=== PATIENT | male | born 1965 | race Caucasian/White ===

== ENCOUNTER 2017-01-28 09:53 | Emergency (ER) | payer OTHER, SELFPAY ==
[~2017-01-28] VITALS: Ht 167.6 cm; Wt 77.6 kg
[2017-01-28 09:54] VITALS: BP_DIAS 78
[2017-01-28] MEDS ORDERED: KETOROLAC 60 MG/2 ML VIAL (J1885) IM ONE (10:30)
[2017-01-28] MEDS ORDERED: NAPR500T PO (10:41)
[2017-01-28] MEDS ORDERED: VALI5TAB PO (10:41)
[2017-01-28 10:47] VITALS: BP_SYST 142
== END 2017-01-28 10:50 | disposition home or self-care (01) ==
LOC: M ED 09:53
DX: S39.012A Strain of muscle, fascia and tendon of lower back, initial encounter (principal); X50.9XXA Other and unspecified overexertion or strenuous movements or postures, initial encounter; Y92.019 Unspecified place in single-family (private) house as the place of occurrence of the external cause; Y93.89 Activity, other specified; Y99.8 Other external cause status
CPT/HCPCS: 96372; 99282; J1885

== ENCOUNTER 2017-07-03 09:41 | Emergency (ER) | payer MEDICAID, SELFPAY ==
[2017-07-03] MEDS: LIDOCAINE 2% MDV 20 ML VIAL SC (10:15)
[2017-07-03] MEDS: BUPIVACAINE HCL 0.5% 10 ML VIAL SC (10:15)
== END 2017-07-03 10:42 | disposition home or self-care (01) ==
LOC: M ED 09:41
DX: K04.7 Periapical abscess without sinus (principal); F17.210 Nicotine dependence, cigarettes, uncomplicated; Z96.9 Presence of functional implant, unspecified
CPT/HCPCS: 64400

== ENCOUNTER → 2017-08-04 | Outpatient (CLI) | payer OTHER, MEDICAID | LOC: M WUC 17:01 | DX: M51.36 Other intervertebral disc degeneration, lumbar region (principal); M51.37 Other intervertebral disc degeneration, lumbosacral region; M43.16 Spondylolisthesis, lumbar region; M43.17 Spondylolisthesis, lumbosacral region | CPT/HCPCS: 72100 ==

== ENCOUNTER 2017-08-16 08:47 | Emergency (ER) | payer OTHER | END 2017-08-16 10:49 | disposition home or self-care (01) | LOC: M ED 08:47 | DX: M19.012 Primary osteoarthritis, left shoulder (principal); M75.32 Calcific tendinitis of left shoulder; F17.210 Nicotine dependence, cigarettes, uncomplicated | CPT/HCPCS: 73030 ==

== ENCOUNTER → 2017-08-16 | Outpatient (REF) | payer OTHER ==
[2017-08-16 14:00] LABS: BASO # 0.1 10^3/uL (0.0-0.2); BASO % 0.7 % (0.0-1.0); EOS # 0.2 10^3/uL (0.0-0.50); EOS % 2.6 % (0.0-3.0); HEMATOCRIT 45.8 % (42.0-52.0); HEMOGLOBIN 15.4 g/dl (14.0-18.0); IMMATURE GRANULOCYTE % 0.2 % (0-3.0); LYMPH # 2.8 10^3/uL (1.5-4.5); LYMPH % 30.7 % (24.0-44.0); MEAN CORPUSCULAR HEMOGLOBIN 30.6 pg (27.0-33.0); MEAN CORPUSCULAR HGB CONC 33.6 g/dl (32.0-36.5); MEAN CORPUSCULAR VOLUME 90.9 fl (80.0-96.0); MONO # 0.6 10^3/uL (0.0-0.8); MONO % 6.9 % (0.0-5.0); NEUTROPHILS # 5.4 10^3/uL (1.8-7.7); NEUTROPHILS % 58.9 % (36.0-66.0); PLATELET COUNT, AUTOMATED 189 10^3/uL (150-450); RED BLOOD COUNT 5.04 10^6/uL (4.30-6.10); RED CELL DISTRIBUTION WIDTH 13.8 % (11.5-14.5); WHITE BLOOD COUNT 9.1 10^3/uL (4.0-10.0)
[2017-08-16 14:23] LABS: ALBUMIN 4.2 GM/DL (3.2-5.2); ALBUMIN/GLOBULIN RATIO 1.31 (1.00-1.93); ALKALINE PHOSPHATASE 82 U/L (45-117); ALT/SGPT 15 U/L (12-78); ANION GAP 6 MEQ/L (8-16); AST/SGOT 12 U/L (7-37); BILIRUBIN,TOTAL 0.2 MG/DL (0.2-1.0); BLOOD UREA NITROGEN 19 MG/DL (7-18); CARBON DIOXIDE LEVEL 26 MEQ/L (21-32); CHLORIDE LEVEL 111 MEQ/L (98-107); CHOLESTEROL LEVEL 203 MG/DL (<200); CHOLESTEROL RISK RATIO 7.518 (<5); CREATININE FOR GFR 1.06 MG/DL (0.70-1.30); GLOMERULAR FILTRATION RATE > 60.0 (>56); GLUCOSE, FASTING 93 MG/DL (70-100); HDL CHOLESTEROL 27 MG/DL (>40); LDL CHOLESTEROL 111.4 MG/DL (<100); NON-HDL-C 176 MG/DL; POTASSIUM SERUM 4.5 MEQ/L (3.5-5.1); SODIUM LEVEL 143 MEQ/L (136-145); TOTAL PROTEIN 7.4 GM/DL (6.4-8.2); TRIGLYCERIDES LEVEL 323 MG/DL (<150)
[2017-08-16 14:49] LABS: HEPATITIS B SURFACE ANTIGEN NEGATIVE (NEGATIVE)
[2017-08-16 15:50] LABS: HEPATITIS C VIRUS ABY INDEX > 11.0 INDEX (<0.8)
[2017-08-20 00:06] LABS: HCV RNA NAA QUALITATIVE Positive (Negative)
== END ==
LOC: M LAB REF 13:23
DX: Z00.01 Encounter for general adult medical examination with abnormal findings (principal); Z20.2 Contact with and (suspected) exposure to infections with a predominantly sexual mode of transmission

== ENCOUNTER → 2017-08-26 | Outpatient (REF) | payer OTHER ==
[2017-09-01 00:06] LABS: ALPHA 2-MACROGLOBULIN 351 mg/dL (110-276); ALT 10 IU/L (0-55); APOLIPOPROTEIN A-1 126 mg/dL (101-178); FIBROSIS SCORE 0.44 (0.00-0.21); FIBROSIS STAGE F1-F2 (.); GGT 27 IU/L (0-65); HAPTOGLOBIN 122 mg/dL (34-200); HEPATITIS C QUANTITATION <15 IU/mL (.); NECROINFLAM SCORE 0.03 (0.00-0.17); NECROINFLAMM GRADE A0-No activity (.); TOTAL BILIRUBIN 0.3 mg/dL (0.0-1.2)
== END ==
LOC: M LAB REF 17:52
DX: B18.2 Chronic viral hepatitis C (principal)

== ENCOUNTER → 2017-08-27 | Outpatient (CLI) | payer OTHER | LOC: M PAIN 14:45 | DX: M79.1 Myalgia (principal); M46.96 Unspecified inflammatory spondylopathy, lumbar region; M54.2 Cervicalgia; M54.6 Pain in thoracic spine; F17.210 Nicotine dependence, cigarettes, uncomplicated; Z79.899 Other long term (current) drug therapy | CPT/HCPCS: G0463 ==

== ENCOUNTER → 2017-09-18 | Outpatient (CLI) | payer OTHER | LOC: M RAD 12:39 | DX: M51.34 Other intervertebral disc degeneration, thoracic region (principal); M50.20 Other cervical disc displacement, unspecified cervical region | CPT/HCPCS: 72141 ==

== ENCOUNTER 2017-09-27 12:37 | Outpatient (RCR) | payer OTHER | END 2017-10-11 | LOC: M PT 12:37 | DX: Z51.89 Encounter for other specified aftercare (principal); M79.1 Myalgia; M46.96 Unspecified inflammatory spondylopathy, lumbar region; M54.2 Cervicalgia; M54.6 Pain in thoracic spine | CPT/HCPCS: 97162 ==

== ENCOUNTER → 2017-10-11 | Outpatient (REF) | payer OTHER ==
[2017-10-11 16:01] LABS: BASO % 0.4 % (0.0-1.0); EOS # 0.2 10^3/uL (0.0-0.50); EOS % 2.4 % (0.0-3.0); HEMATOCRIT 45.4 % (42.0-52.0); HEMOGLOBIN 15.2 g/dl (13.5-17.5); IMMATURE GRANULOCYTE % 0.4 % (0-3.0); LYMPH # 2.5 10^3/uL (1.5-4.5); LYMPH % 29.7 % (24.0-44.0); MEAN CORPUSCULAR HEMOGLOBIN 31.3 pg (27.0-33.0); MEAN CORPUSCULAR HGB CONC 33.5 g/dl (32.0-36.5); MEAN CORPUSCULAR VOLUME 93.4 fl (80.0-96.0); MONO # 0.6 10^3/uL (0.0-0.8); MONO % 7.2 % (0.0-5.0); NEUTROPHILS % 59.9 % (36.0-66.0); PLATELET COUNT, AUTOMATED 190 10^3/uL (150-450); RED BLOOD COUNT 4.86 10^6/uL (4.30-6.10); RED CELL DISTRIBUTION WIDTH 13.7 % (11.5-14.5); WHITE BLOOD COUNT 8.3 10^3/uL (4.0-10.0)
[2017-10-11 16:06] LABS: HEPATITIS B SURFACE ANTIBODY NEGATIVE (POSITIVE)
[2017-10-11 16:07] LABS: ALBUMIN 4.1 GM/DL (3.2-5.2); ALBUMIN/GLOBULIN RATIO 1.21 (1.00-1.93); ALKALINE PHOSPHATASE 72 U/L (45-117); ALT/SGPT 26 U/L (12-78); ANION GAP 7 MEQ/L (8-16); AST/SGOT 21 U/L (7-37); BILIRUBIN,TOTAL 0.3 MG/DL (0.2-1.0); BLOOD UREA NITROGEN 13 MG/DL (7-18); CALCIUM LEVEL 9.2 MG/DL (8.5-10.1); CARBON DIOXIDE LEVEL 27 MEQ/L (21-32); CHLORIDE LEVEL 110 MEQ/L (98-107); CREATININE FOR GFR 1.09 MG/DL (0.70-1.30); GLOMERULAR FILTRATION RATE > 60.0 (>56); GLUCOSE, FASTING 98 MG/DL (70-100); POTASSIUM SERUM 4.3 MEQ/L (3.5-5.1); SODIUM LEVEL 144 MEQ/L (136-145); TOTAL PROTEIN 7.5 GM/DL (6.4-8.2)
[2017-10-11 16:46] LABS: HIV 1&2 SCREEN CENTAUR NEGATIVE (NEGATIVE)
== END ==
LOC: M SFHCPLAZ 12:59
DX: B19.20 Unspecified viral hepatitis C without hepatic coma (principal)

== ENCOUNTER → 2017-10-14 | Outpatient (CLI) | payer OTHER | LOC: M PAIN 14:30 | DX: M51.36 Other intervertebral disc degeneration, lumbar region (principal); G89.29 Other chronic pain; M54.2 Cervicalgia; F32.9 Major depressive disorder, single episode, unspecified; F17.210 Nicotine dependence, cigarettes, uncomplicated; Z79.899 Other long term (current) drug therapy | CPT/HCPCS: G0463 ==

== ENCOUNTER → 2017-10-25 | Outpatient (CLI) | payer MEDICAID | LOC: M OUTALCOH 07:48 | DX: Z13.9 Encounter for screening, unspecified (principal); F11.20 Opioid dependence, uncomplicated; F10.20 Alcohol dependence, uncomplicated; F14.20 Cocaine dependence, uncomplicated ==

== ENCOUNTER → 2017-10-26 | Outpatient (REF) | payer MEDICAID | LOC: M LAB REF 19:08 | DX: F11.21 Opioid dependence, in remission (principal) ==

== ENCOUNTER → 2017-11-02 | Outpatient (REF) | payer MEDICAID, OTHER ==
[2017-11-15 10:26] LABS: AMPHETAMINE SCREEN, URINE Negative ng/mL (Cutoff=1000); BARBITURATES SCREEN, URINE Negative ng/mL (Cutoff=200); BENZODIAZEPINES, URINE SCREEN Negative ng/mL (Cutoff=200); CANNABINOID SCREEN, URINE Negative ng/mL (Cutoff=20); COCAINE SCREEN, URINE Negative ng/mL (Cutoff=300); CREATININE, URINE 93.4 mg/dL (20.0-300.0); FENTANYL URINE SCREEN Negative pg/mL (Cutoff=2000); METHADONE, URINE SCREEN Negative ng/mL (Cutoff=300); NALOXONE RESULT Positive (.); OPIATE SCREEN, URINE Negative ng/mL (Cutoff=300); OXYCODONE, SCREEN, URINE Negative ng/mL (Cutoff=100); PCP SCREEN, URINE Negative ng/mL (Cutoff=25); SPECIFIC GRAVITY, URINE 1.013 (.); URINE BUPRENORPHINE Positive (.); URINE BUPRENORPHINE Positive (Cutoff=10); URINE BUPRENORPHINE See Final Results ng/mL (Cutoff=10); URINE BUPRENORPHINE CONFIRM 172 ng/mL (Cutoff=10); URINE NORBUPRENORPHINE Positive (.); URINE NORBUPRENORPHINE CONFIRM 336 ng/mL (Cutoff=10)
== END ==
LOC: M LAB REF 16:28
DX: F11.21 Opioid dependence, in remission (principal)

== ENCOUNTER → 2017-11-09 | Outpatient (REF) | payer MEDICAID, OTHER ==
[2017-11-23 14:16] LABS: AMPHETAMINE SCREEN, URINE Negative ng/mL (Cutoff=1000); BARBITURATES SCREEN, URINE Negative ng/mL (Cutoff=200); BENZODIAZEPINES, URINE SCREEN Negative ng/mL (Cutoff=200); CANNABINOID SCREEN, URINE Negative ng/mL (Cutoff=20); COCAINE SCREEN, URINE Negative ng/mL (Cutoff=300); CREATININE, URINE 27.4 mg/dL (20.0-300.0); FENTANYL URINE SCREEN Negative pg/mL (Cutoff=2000); METHADONE, URINE SCREEN Negative ng/mL (Cutoff=300); NALOXONE RESULT Positive (.); OPIATE SCREEN, URINE Negative ng/mL (Cutoff=300); OXYCODONE, SCREEN, URINE Negative ng/mL (Cutoff=100); PCP SCREEN, URINE Negative ng/mL (Cutoff=25); SPECIFIC GRAVITY, URINE 1.006 (.); URINE BUPRENORPHINE Positive (.); URINE BUPRENORPHINE Positive (Cutoff=10); URINE BUPRENORPHINE See Final Results ng/mL (Cutoff=10); URINE BUPRENORPHINE CONFIRM 30 ng/mL (Cutoff=10); URINE NORBUPRENORPHINE Positive (.); URINE NORBUPRENORPHINE CONFIRM 62 ng/mL (Cutoff=10); pH, URINE 5.6 (4.5-8.9)
== END ==
LOC: M LAB REF 18:49
DX: F11.21 Opioid dependence, in remission (principal)
CPT/HCPCS: 80362

== ENCOUNTER 2017-11-10 10:34 | Outpatient (RCR) | payer MEDICAID | END 2017-11-11 | LOC: M OUTALCOH 10:34 | DX: F11.20 Opioid dependence, uncomplicated (principal); F10.20 Alcohol dependence, uncomplicated; F14.20 Cocaine dependence, uncomplicated; F17.200 Nicotine dependence, unspecified, uncomplicated ==

== ENCOUNTER 2017-11-15 14:06 | Outpatient (RCR) | payer MEDICAID | END 2017-12-11 | LOC: M OUTALCOH 14:06 | DX: F11.20 Opioid dependence, uncomplicated (principal); F10.20 Alcohol dependence, uncomplicated; F14.20 Cocaine dependence, uncomplicated; F17.200 Nicotine dependence, unspecified, uncomplicated ==

== ENCOUNTER 2017-12-13 10:32 | Outpatient (RCR) | payer MEDICAID | END 2018-01-11 | LOC: M OUTALCOH 10:32 | DX: F11.20 Opioid dependence, uncomplicated (principal); F10.20 Alcohol dependence, uncomplicated; F14.20 Cocaine dependence, uncomplicated; F17.200 Nicotine dependence, unspecified, uncomplicated ==

== ENCOUNTER → 2017-12-16 | Outpatient (REF) | payer OTHER ==
[2017-12-16 12:13] LABS: ALBUMIN 3.9 GM/DL (3.2-5.2); ALBUMIN/GLOBULIN RATIO 1.11 (1.00-1.93); ALKALINE PHOSPHATASE 82 U/L (45-117); ALT/SGPT 19 U/L (12-78); AST/SGOT 20 U/L (7-37); BILIRUBIN,DIRECT < 0.1 MG/DL (0.0-0.2); BILIRUBIN,TOTAL 0.4 MG/DL (0.2-1.0); TOTAL PROTEIN 7.4 GM/DL (6.4-8.2)
[2017-12-20 11:01] LABS: HEPATITIS C QUANTITATION HCV Not Detected IU/mL (.)
== END ==
LOC: M SFHCPLAZ 09:42
DX: B18.2 Chronic viral hepatitis C (principal)
CPT/HCPCS: 80076

== ENCOUNTER → 2018-01-05 | Outpatient (CLI) | payer OTHER ==
[2018-01-05 13:16] LABS: ALBUMIN 3.8 GM/DL (3.2-5.2); ALBUMIN/GLOBULIN RATIO 1.12 (1.00-1.93); ALKALINE PHOSPHATASE 79 U/L (45-117); ALT/SGPT 22 U/L (12-78); AST/SGOT 18 U/L (7-37); BILIRUBIN,DIRECT < 0.1 MG/DL (0.0-0.2); BILIRUBIN,TOTAL 0.3 MG/DL (0.2-1.0); TOTAL PROTEIN 7.2 GM/DL (6.4-8.2)
== END ==
LOC: M LAB 12:08
DX: Z01.812 Encounter for preprocedural laboratory examination (principal); M65.351 Trigger finger, right little finger
CPT/HCPCS: 80076

== ENCOUNTER → 2018-02-01 | Outpatient (REF) | LOC: M SMT 10:54 | DX: Z02.9 Encounter for administrative examinations, unspecified (principal) ==

== ENCOUNTER 2018-02-16 16:00 | Outpatient (RCR) | payer MEDICAID | END 2018-03-13 | LOC: M OUTALCOH 02-21 14:00 | DX: F11.20 Opioid dependence, uncomplicated (principal); F10.20 Alcohol dependence, uncomplicated; F14.20 Cocaine dependence, uncomplicated; F17.200 Nicotine dependence, unspecified, uncomplicated ==

== ENCOUNTER 2018-03-14 13:51 | Outpatient (RCR) | payer MEDICAID | END 2018-04-13 | LOC: M OUTALCOH 03-21 14:00 | DX: F11.20 Opioid dependence, uncomplicated (principal); F10.20 Alcohol dependence, uncomplicated; F14.20 Cocaine dependence, uncomplicated; F17.200 Nicotine dependence, unspecified, uncomplicated ==

== ENCOUNTER → 2018-03-17 | Outpatient (REF) | payer MEDICAID ==
[2018-03-17 12:59] LABS: BASO # 0.1 10^3/uL (0.0-0.2); BASO % 0.7 % (0.0-1.0); EOS # 0.4 10^3/uL (0.0-0.50); EOS % 4.4 % (0.0-3.0); HEMATOCRIT 49.3 % (42.0-52.0); HEMOGLOBIN 16.6 g/dl (13.5-17.5); IMMATURE GRANULOCYTE % 0.6 % (0-3.0); LYMPH # 3.5 10^3/uL (1.5-4.5); LYMPH % 40.1 % (24.0-44.0); MEAN CORPUSCULAR HGB CONC 33.7 g/dl (32.0-36.5); MEAN CORPUSCULAR VOLUME 92.1 fl (80.0-96.0); MONO # 0.6 10^3/uL (0.0-0.8); MONO % 6.7 % (0.0-5.0); NEUTROPHILS # 4.2 10^3/uL (1.8-7.7); NEUTROPHILS % 47.5 % (36.0-66.0); PLATELET COUNT, AUTOMATED 222 10^3/uL (150-450); RED BLOOD COUNT 5.35 10^6/uL (4.30-6.10); RED CELL DISTRIBUTION WIDTH 13.2 % (11.5-14.5); WHITE BLOOD COUNT 8.8 10^3/uL (4.0-10.0)
[2018-03-17 14:17] LABS: ALBUMIN/GLOBULIN RATIO 1.14 (1.00-1.93); ALKALINE PHOSPHATASE 64 U/L (45-117); ALT/SGPT 23 U/L (12-78); ANION GAP 6 MEQ/L (8-16); AST/SGOT 24 U/L (7-37); BILIRUBIN,TOTAL 0.3 MG/DL (0.2-1.0); BLOOD UREA NITROGEN 14 MG/DL (7-18); CALCIUM LEVEL 9.5 MG/DL (8.5-10.1); CARBON DIOXIDE LEVEL 29 MEQ/L (21-32); CHLORIDE LEVEL 106 MEQ/L (98-107); CHOLESTEROL LEVEL 213 MG/DL (<200); CREATININE FOR GFR 1.15 MG/DL (0.70-1.30); GLOMERULAR FILTRATION RATE > 60.0 (>56); GLUCOSE, FASTING 103 MG/DL (70-100); HDL CHOLESTEROL 20 MG/DL (>40); NON-HDL-C 193 MG/DL; SODIUM LEVEL 141 MEQ/L (136-145); TOTAL PROTEIN 7.5 GM/DL (6.4-8.2); TRIGLYCERIDES LEVEL 439 MG/DL (<150)
== END ==
LOC: M LAB REF 12:42
DX: R41.3 Other amnesia (principal)

== ENCOUNTER → 2018-03-31 | Outpatient (CLI) | payer OTHER | LOC: M RAD 11:08 | DX: R90.82 White matter disease, unspecified (principal); R41.3 Other amnesia | CPT/HCPCS: 70551 ==

== ENCOUNTER 2018-04-18 14:25 | Outpatient (RCR) | payer MEDICAID | END 2018-05-13 | LOC: M OUTALCOH 04-25 16:00 | DX: F11.20 Opioid dependence, uncomplicated (principal); F10.20 Alcohol dependence, uncomplicated; F14.20 Cocaine dependence, uncomplicated; F17.200 Nicotine dependence, unspecified, uncomplicated ==

== ENCOUNTER → 2018-04-21 | Outpatient (REF) | payer MEDICAID ==
[2018-04-21 14:01] LABS: RHEUMATOID FACTOR QUANT < 10.0 IU/ML (<15.0); TOTAL PROTEIN 7.2 GM/DL (6.4-8.2)
[2018-04-21 15:36] LABS: ERYTHROCYTE SEDIMENTATION RATE 25 mm/hr (0-20)
[2018-04-21 17:12] LABS: ESTIMATED AVERAGE GLUCOSE 114 MG/DL (60-110); HEMOGLOBIN A1c 5.6 %
[2018-04-26 09:52] LABS: ALBUMIN 4.17 GM/DL (3.29-5.55); ALBUMIN % 57.9 % (55.8-66.1); ALPHA-1-GLOBULIN % 4.3 % (2.9-4.9); ALPHA-1-GLOBULINS 0.31 GM/DL (0.17-0.41); ALPHA-2-GLOBULINS 0.85 GM/DL (0.42-0.99); ALPHA-2-GLOBULINS % 11.8 % (7.1-11.8); BETA-1-GLOBULINS 0.38 GM/DL (0.28-0.60); BETA-1-GLOBULINS % 5.3 % (4.7-7.2); BETA-2-GLOBULINS 0.41 GM/DL (0.19-0.55); BETA-2-GLOBULINS % 5.7 % (3.2-6.5); GAMMA GLOBULINS 1.08 GM/DL (0.65-1.58)
[2018-04-27 00:06] LABS: ANTINUCLEAR ANTIBODIES DIRECT Negative (Negative); VITAMIN B1 LEVEL WHOLE BLOOD 55.3 nmol/L (66.5-200.0); VITAMIN B6,PYRIDOXAL PHOSPHATE 16.9 ug/L (5.3-46.7); VITAMIN E(ALPHA TOCOPHEROL) 11.9 mg/L (7.0-25.1)
== END ==
LOC: M LABNEURO 09:41
DX: E11.40 Type 2 diabetes mellitus with diabetic neuropathy, unspecified (principal)
CPT/HCPCS: 84165

== ENCOUNTER → 2018-04-25 | Outpatient (REF) | payer OTHER ==
[2018-04-25 11:58] LABS: BASO # 0.1 10^3/uL (0.0-0.2); BASO % 0.8 % (0.0-1.0); EOS # 0.5 10^3/uL (0.0-0.50); EOS % 5.1 % (0.0-3.0); HEMATOCRIT 43.9 % (42.0-52.0); HEMOGLOBIN 14.8 g/dl (13.5-17.5); IMMATURE GRANULOCYTE % 0.8 % (0-3.0); LYMPH # 3.3 10^3/uL (1.5-4.5); LYMPH % 33.8 % (24.0-44.0); MEAN CORPUSCULAR HGB CONC 33.7 g/dl (32.0-36.5); MONO # 0.8 10^3/uL (0.0-0.8); NEUTROPHILS # 5.1 10^3/uL (1.8-7.7); NEUTROPHILS % 51.5 % (36.0-66.0); PLATELET COUNT, AUTOMATED 219 10^3/uL (150-450); RED BLOOD COUNT 4.77 10^6/uL (4.30-6.10); RED CELL DISTRIBUTION WIDTH 13.2 % (11.5-14.5); WHITE BLOOD COUNT 9.9 10^3/uL (4.0-10.0)
[2018-04-25 12:15] LABS: ALBUMIN 3.6 GM/DL (3.2-5.2); ALBUMIN/GLOBULIN RATIO 1.09 (1.00-1.93); ALKALINE PHOSPHATASE 67 U/L (45-117); ALT/SGPT 27 U/L (12-78); ANION GAP 8 MEQ/L (8-16); AST/SGOT 23 U/L (7-37); BILIRUBIN,TOTAL 0.5 MG/DL (0.2-1.0); BLOOD UREA NITROGEN 16 MG/DL (7-18); CALCIUM LEVEL 9.2 MG/DL (8.5-10.1); CARBON DIOXIDE LEVEL 26 MEQ/L (21-32); CHLORIDE LEVEL 105 MEQ/L (98-107); CREATININE FOR GFR 1.18 MG/DL (0.70-1.30); GLOMERULAR FILTRATION RATE > 60.0 (>56); GLUCOSE, FASTING 126 MG/DL (70-100); POTASSIUM SERUM 4.3 MEQ/L (3.5-5.1); SODIUM LEVEL 139 MEQ/L (136-145); TOTAL PROTEIN 6.9 GM/DL (6.4-8.2)
[2018-04-27 14:14] LABS: HEPATITIS C QUANTITATION HCV Not Detected IU/mL (.)
== END ==
LOC: M SFHCPLAZ 08:46
DX: B18.2 Chronic viral hepatitis C (principal)

== ENCOUNTER 2018-05-30 15:00 | Outpatient (RCR) | payer MEDICAID ==
[~2018-05-30 15:00] MED LIST: ACET30TAB PO; ADVI200T PO; AUGM875T28 PO; NAPR-50 PO; NAPR-885 PO; SOMA350T PO; VALI5TAB PO
[2018-06-09] MEDS ORDERED: SUBO8MIS PO (10:37)
[2018-06-09] MEDS ORDERED: DULO1CAP3 (10:37)
[2018-06-09] MEDS ORDERED: IBUP-1022 (10:37)
[2018-06-09] MEDS ORDERED: NICO14DI24 (10:37)
== END 2018-06-13 ==
LOC: M OUTALCOH 15:00
PROVIDERS: ATTEND Psychiatry & Neurology Psychiatry
DX: F10.20 Alcohol dependence, uncomplicated (principal); F11.20 Opioid dependence, uncomplicated; F17.200 Nicotine dependence, unspecified, uncomplicated

== ENCOUNTER 2018-06-16 13:02 | Outpatient (RCR) | payer MEDICAID ==
[~2018-06-16 13:02] MED LIST changes: +DULO1CAP3; +IBUP-1022; +NICO14DI24; +SUBO8MIS PO
== END 2018-07-14 ==
LOC: M OUTALCOH 13:02
PROVIDERS: ATTEND Psychiatry & Neurology Psychiatry
DX: F11.20 Opioid dependence, uncomplicated (principal); F10.20 Alcohol dependence, uncomplicated; F14.20 Cocaine dependence, uncomplicated; F17.200 Nicotine dependence, unspecified, uncomplicated

== ENCOUNTER 2018-07-05 05:58 | Day surgery (SDC) | payer OTHER ==
[~2018-07-05] VITALS: Ht 167.6 cm; Wt 81.1 kg
[2018-07-05] MEDS ORDERED: EPINEPHrine INJ 1 MG/ML 1ML AMP ONE (05:59)
[2018-07-05] MEDS ORDERED: dexameTHASONE 10 MG/1 ML VIAL PRES.FREE (J1100) ONE (05:59)
[2018-07-05] MEDS ORDERED: ROPIvacaine 0.5% 30 ML INJECTION (J2795 PER 1MG) ONE (05:59)
[2018-07-05] MEDS ORDERED: LR 1,000 ML IV ONE (06:00)
[2018-07-05] MEDS ORDERED: fentaNYL 100 MCG/2 ML INJECTION (J3010) As Ordered ONE (06:44)
[2018-07-05] MEDS ORDERED: MIDAZOLAM INJ 2 MG/2 ML VIAL (J2250) As Ordered ONE ×2 (06:44→07:21)
[2018-07-05] MEDS ORDERED: EPINEPHrine 1MG/ML INJ 30ML MD-VIAL As Ordered ONE (06:58)
[2018-07-05] MEDS ORDERED: LIDOCAINE 1% MDV 20ML VIAL As Ordered ONE (06:58)
[2018-07-05] MEDS ORDERED: ROCURONIUM BROMIDE 50 MG/5 ML VIAL As Ordered ONE ×2 (07:20→08:43)
[2018-07-05] MEDS ORDERED: fentaNYL 250 MCG/5 ML INJECTION (J3010) As Ordered ONE (07:20)
[2018-07-05] MEDS ORDERED: dexameTHASONE 4 MG/ML 1ML VIAL (J1100) As Ordered ONE (07:20)
[2018-07-05] MEDS ORDERED: PROPOFOL 200 MG/20 ML VIAL As Ordered ONE (07:20)
[2018-07-05] MEDS ORDERED: LIDOCAINE 2% INJ 100 MG/5 ML SDV (FOR ANES.) As Ordered ONE (07:20)
[2018-07-05] MEDS ORDERED: ONDANSETRON 4MG/2ML VIAL (J2405) As Ordered ONE (07:20)
[2018-07-05] MEDS ORDERED: fentaNYL 100 MCG/2 ML INJECTION (J3010) IV ONE (07:30)
[2018-07-05] MEDS ORDERED: MIDAZOLAM INJ 2 MG/2 ML VIAL (J2250) IV ONE (07:30)
[2018-07-05] MEDS ORDERED: PHENYLephrine HCL 500 MCG/5 ML (100MCG/ML) SYRINGE (J2370) As Ordered ONE (08:11)
[2018-07-05] MEDS ORDERED: GLYCOPYRROLATE INJ 0.2 MG/ML 2 ML VIAL As Ordered ONE (08:44)
[2018-07-05] MEDS ORDERED: NEOSTIGMINE 10 MG/10 ML VIAL (J2710) As Ordered ONE (08:44)
[2018-07-05] MEDS ORDERED: ONDANSETRON 4MG/2ML VIAL (J2405) IV PRN (10:45)
[2018-07-05] MEDS ORDERED: LR 1,000 ML IV SCH ×2 (10:45)
[2018-07-05] MEDS ORDERED: fentaNYL 100 MCG/2 ML INJECTION (J3010) IV PRN (10:45)
[2018-07-05 12:30] VITALS: BP 124/63
--- NOTE | 2018-07-05 14:20 | RO ---
DATE OF SURGERY: 07/05/2018 PREOPERATIVE DIAGNOSES: 1. Left shoulder rotator cuff tear. 2. Left shoulder biceps tendonitis. 3. Left shoulder impingement. 4. Left shoulder acromioclavicular joint arthritis. POSTOPERATIVE DIAGNOSES: 1. Left shoulder rotator cuff tear (subscapularis). 2. Left shoulder partial long head biceps tendon tear. 3. Left shoulder impingement. 4. Left shoulder acromioclavicular joint arthritis. PROCEDURE: 1. Left shoulder arthroscopy with rotator cuff repair (subscapularis). 2. Left shoulder open subpectoral biceps tenodesis. 3. Left shoulder arthroscopic distal clavicle excision. 4. Left shoulder subacromial decompression and synovectomy. SURGEON: Raymon Lawrence MD [employer]ULT [employer] IN[employer]CTOR: ANESTHESIA: DESCRIPTION OF PROCEDURE: Patient was identified in the preoperative holding area. The left shoulder was marked by myself. We discussed postoperative pain medications. His pain management doctor will take care of that. We discussed postop restrictions. I reassessed his acromioclavicular (AC) joint. He remained tender to palpation there. He then had an interscalene nerve block by anesthesia. He was brought to the operating room, placed supine on a well-padded operating room (OR) table with a beanbag. General anesthesia was induced. Exam under anesthesia revealed 90 degrees of external rotation with his arm at his side, 80 of external rotation with his arm at 90, and 150 degrees of passive forward flexion. He was then placed into the right side down lateral decubitus position with an axillary roll and all bony prominences well padded. Venodyne boots bilateral lower extremities for deep venous thrombosis (DVT) prophylaxis. There was no increased anterior or posterior translation. The Arthrex star sleeve had been placed. The arm was then attached to the lateral decubitus traction device with 10 pounds of traction. The left shoulder was then prepped and draped in normal sterile fashion with Chloraprep. He received appropriate intravenous (IV) antibiotics within 1 hour of incision. Prior to incision, a time-out was performed per hospital protocol. Danicagerardo Varela was present for the entire procedure and participated in all essential portions of the procedure. This included patient positioning, draping, holding the arthroscope, passing sutures, using a mallet, assisting with placing anchors, cutting suture arthroscopically and the wound closure. The left shoulder was insufflated with lactated Ringer. Standard posterior viewing portal made with an #11 blade. A 30 degree arthroscope introduced into the joint. There was moderate synovitis in the rotator interval and tearing of the subscapularis on the posterior lever push maneuver the entire tendon lifted off. There was no retraction. The rest of the rotator cuff looked great from the arthroscopic view. Patchy grade 1 with an are of grade 2 chondromalacia in the humeral head. Grade 1 for the glenoid. There was a partial tear where the long head of the biceps was attached the superior labrum. An anterior working portal was established through the rotator interval and a synovectomy performed with cautery and shaver. I again repeated the posterior lever push maneuver of the entire subscapularis and lifted off the lesser tuberosity. This corresponded to his preoperative weakness on exam and this required repair. In order to perform an arthroscopic rotator cuff repair of the subscapularis this required a tenotomy of the biceps. That was performed with a meniscal punch. A shaver used to debride the stump back the superior labrum. I then debrided some of the frayed anterior superior labrum. A chondroplasty humeral head with a shaver. We then proceeded with an open subpectoral biceps tenodesis. An incision made with a #15 blade just lateral to the axilla. The biceps fascia was carefully opened with Metzenbaum scissors. The long head of biceps was easily identified and retrieved through from the incision uneventfully. The Arthrex proximal biceps kit was opened and a fiber loop used to place a running locking whipstitch starting at the muscle tendon junction and extending proximally for 2 cm. Needle was cut off, sutures loaded through the button per routine. Cautery used to lázaro out the drill hole in the bicipital groove. Sutures were approximated to the cautery lázaro and this was found to restore the resting tension nicely. A unicortical drill hole made with a spade tip drill bit and then I irrigated all bony debris. The button was then passed through the drill hole, sutures were toggled and tensioned, which flipped the button and docked the biceps along the bicipital groove nicely. Free needle was used to pass one limb of FiberWire back through the tendon and lock the construct in place and knots tied by hand. This very nicely restored the resting tension. Incision was extensively irrigated, closed with #2-0 Vicryl running, #3-0 Monocryl, at the end of the case, Steri-Strips. Arthroscope was placed into the joint. We proceeded with an arthroscopic subscapularis repair. An accessory superolateral portal was developed and the shaver used to clear soft tissue off the lesser tuberosity and remove 2 mm of articular cartilage to broaden the footprint. Scorpion was used to pass TigerTape through the upper one-third of the subscapularis through healthier quality tissue. Those sutures then retrieved out the initial anterior portal, loaded through a 4.75 mm Peak SwiveLock anchor. A punch was used to create a socket in the lesser tuberosity. The anchor was then docked. Sutures tensioned. [place] inserted by hand with fantastic fixation. This nicely secured the subscapularis and this was probed with a switching stick and it was a nice repair. The sutures were cut arthroscopically with a hat parts cutter machine. The arthroscope was then placed in the subacromial space, where there was extensive bursitis. Lateral working portal established. Bursectomy with the shaver and cautery. The anterior aspect of the acromion was cleared off with the cautery. There was a small spur. No acromioplasty needed. After debriding the bursa, I appreciated a very low grade, partial thickness bursal-sided tear of the supraspinatus. The whole bursal side of the cuff was palpated with a switching stick. There were no full, higher even intermediate grade tears. Very gentle debridement with a shaver for that frayed supraspinatus. We then proceeded with arthroscopic distal clavicle excision. There was [id number] degenerative change, very tight space. A bur was then used to remove approximately 7-8 mm of the distal clavicle. The scope was placed intermittently through the anterior portal to get a direct view and ensure that no superior or posterior bone remained. After a complete distal clavicle excision, the shoulder was irrigated and drained. Portals closed with #3-0 nylon suture. Bulky sterile dressing applied. All counts correct times two. Complications none. He was placed into an Arc 2 shoulder pillow and then transferred to the postanesthesia care unit (PACU) in stable condition; complications none.
--- NOTE | 2018-07-05 19:24 | ECGEPIP ---
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
== END 2018-07-05 12:40 | disposition home or self-care (01) ==
LOC: M SDC 05:58
PROVIDERS: ATTEND Orthopaedic Surgery
DX: M75.102 Unspecified rotator cuff tear or rupture of left shoulder, not specified as traumatic (principal); S46.112A Strain of muscle, fascia and tendon of long head of biceps, left arm, initial encounter; M75.42 Impingement syndrome of left shoulder; M19.012 Primary osteoarthritis, left shoulder; M54.5 Low back pain; F32.9 Major depressive disorder, single episode, unspecified; Z86.19 Personal history of other infectious and parasitic diseases; Z87.891 Personal history of nicotine dependence
CPT/HCPCS: 23430; 29824; 29826; 29827; 88304; 93005; C1713; J0690; J1100; J2250; J2370; J2405; J2710; J2795; J3010

== ENCOUNTER → 2018-09-14 | Outpatient (CLI) | payer OTHER ==
[~2018-09-14] MED LIST changes: +ACET-716 PO; -ACET30TAB PO; -NAPR-50 PO; +NAPR-837 PO
--- NOTE | 2018-09-14 10:33 | REP ---
CAROTID ULTRASOUND: Real-time ultrasound evaluation and duplex Doppler interrogation of the extracranial carotid vasculature is performed. There is mild plaquing and narrowing in both carotid bulbs extending into the internal and external carotid arteries. Luminal narrowing is less than 50%. There is no evidence of hemodynamically significant stenosis of either internal carotid artery. Normal flow velocities are seen. The vertebral arteries demonstrate normal direction of flow. RIGHT LEFT Peak systolic velocity ICA 58.4 cm/s 45.7 cm/s End diastolic velocity ICA 23.6 cm/s 14.7 cm/s Peak systolic velocity CCA 87.2 cm/s 72.5 cm/s Peak systolic velocity ECA 91.9 cm/s 52.9 cm/s ICA/CCA ratio 0.67 0.71 IMPRESSION: Bilateral luminal narrowing of the internal carotid arteries less than 50%. No evidence of hemodynamically significant stenosis. Electronically Signed by Fausto Flores MD 09/14/2018 10:25 A
== END ==
LOC: M RAD 09:10
PROVIDERS: ATTEND Family Medicine Addiction Medicine
DX: I65.29 Occlusion and stenosis of unspecified carotid artery (principal); R41.3 Other amnesia

== ENCOUNTER → 2018-10-05 | Outpatient (CLI) | payer OTHER ==
[~2018-10-05] MED LIST changes: +PROHANCE 279.3MG/ML 15ML VIAL (A9576) As Ordered ONE
--- NOTE | 2018-10-05 10:14 | REP ---
MR BRAIN WITHOUT AND WITH CONTRAST: HISTORY: Cerebral vascular disease. CONTRAST: ProHance 15 mL. COMPARISON: 03/31/2018. Scattered punctate areas of increased signal intensity on T2-weighted images are present in the periventricular and subcortical white matter. This represents small vessel ischemic disease. There is no intraparenchymal hemorrhage, infarct, mass, or midline shift. The sella turcica is partially empty. There is no abnormal enhancement. The ventricular system is normal in appearance. There is no extracerebral collection. The sinuses are clear. IMPRESSION: Minimal small vessel ischemic disease. Electronically Signed by Juan Neff MD 10/05/2018 10:17 A
== END ==
LOC: M RAD 08:38
PROVIDERS: ATTEND Physician Assistant Medical
DX: I67.82 Cerebral ischemia (principal)
CPT/HCPCS: 70553; A9576

== ENCOUNTER → 2018-12-19 | Outpatient (CLI) | payer OTHER ==
[~2018-12-19] MED LIST changes: -DULO1CAP3; +DULO1CAP6; +PROHANCE 279.3MG/ML 5ML VIAL (A9576) As Ordered ONE
--- NOTE | 2018-12-19 15:17 | REP ---
MR angiography the brain without contrast: History: Pulsatile tinnitus. Technique: 3-D [id number] MR angiography of the brain is acquired in the usual fashion and maximal intensity projection images were generated in rotational format about the vertical and horizontal axes. In addition, source axial T1-weighted images are viewed in cine mode. MR angiographic findings: The distal vertebral arteries are patent and co-dominant. Basilar artery is a little tortuous but widely patent. The posterior cerebral and superior cerebellar vessels are normal and symmetric. There is diffusely diminished flow and caliber in the distal internal carotid artery on the left compared to the right. Somewhat diminish flow is seen in the middle cerebral artery proximally on the left. Anterior cerebral arteries appear intact. There is no visible delatorre aneurysm or arteriovenous malformation. Impression: Asymmetric internal carotid arteries with decreased flow signal and caliber in the internal carotid on the left compared to the right. Question proximal stenosis, otherwise unremarkable MR angiography the brain. Electronically Signed by Howie Lucero MD 12/19/2018 05:17 P
--- NOTE | 2018-12-19 15:22 | REP ---
MR ANGIOGRAPHY OF THE CAROTID ARTERIES BILATERALLY WITHOUT AND WITH IV GADOLINIUM: HISTORY: Pulsatile tinnitus. Comparison duplex carotid sonography September 14, 2018. MRI CONTRAST DOSE: 25 mL of intravenous ProHance is administered. MRI ANGIOGRAPHIC FINDINGS: Great vessel origins and the visualized thoracic arch are unremarkable. The vertebral arteries are codominant and widely patent. Basilar artery is unremarkable. The left common iliac artery is widely patent. There is minimal plaquing in the bulb and proximal ICA. At mid ICA level on the left there is a stenosis approximately 50% which is elongate. The left internal carotid artery is asymmetrically small compared to the right distal to the mid proximal ICA level. On the right, there is minimal plaquing at the carotid bifurcation but no significant stenosis is seen. IMPRESSION: 50% narrowing in the left proximal and mid internal carotid artery. The cervical segment of the ICA on the left is smaller in caliber diffusely than its right-sided counterpart. There is no evidence of beading or focal occlusion. Electronically Signed by Howie Lucero MD 12/19/2018 05:17 P
== END ==
LOC: M RAD 08:51
PROVIDERS: ATTEND Family Medicine Addiction Medicine
DX: H93.A2 Pulsatile tinnitus, left ear (principal)
CPT/HCPCS: 70544; 70549; A9576

== ENCOUNTER → 2019-01-11 | Outpatient (REF) | payer OTHER, MEDICAID ==
[~2019-01-11] MED LIST changes: -PROHANCE 279.3MG/ML 15ML VIAL (A9576) As Ordered ONE; -PROHANCE 279.3MG/ML 5ML VIAL (A9576) As Ordered ONE
[2019-01-11 11:57] LABS: BASO # 0.1 10^3/uL (0.0-0.2); BASO % 0.9 % (0.0-1.0); EOS # 0.4 10^3/uL (0.0-0.50); EOS % 4.2 % (0.0-3.0); HEMATOCRIT 45.1 % (42.0-52.0); HEMOGLOBIN 15.7 g/dl (13.5-17.5); LYMPH # 3.6 10^3/uL (1.5-4.5); LYMPH % 41.6 % (24.0-44.0); MEAN CORPUSCULAR HEMOGLOBIN 30.7 pg (27.0-33.0); MEAN CORPUSCULAR HGB CONC 34.8 g/dl (32.0-36.5); MEAN CORPUSCULAR VOLUME 88.3 fl (80.0-96.0); MONO # 0.7 10^3/uL (0.0-0.8); MONO % 8.2 % (0.0-5.0); NEUTROPHILS # 3.8 10^3/uL (1.8-7.7); NEUTROPHILS % 44.6 % (36.0-66.0); PLATELET COUNT, AUTOMATED 194 10^3/uL (150-450); RED BLOOD COUNT 5.11 10^6/uL (4.30-6.10); WHITE BLOOD COUNT 8.6 10^3/uL (4.0-10.0)
[2019-01-11 12:22] LABS: ALBUMIN 4.1 GM/DL (3.2-5.2); ALT/SGPT 69 U/L (12-78); BILIRUBIN,TOTAL 0.4 MG/DL (0.2-1.0); BLOOD UREA NITROGEN 16 MG/DL (7-18); CALCIUM LEVEL 9.6 MG/DL (8.5-10.1); CARBON DIOXIDE LEVEL 29 MEQ/L (21-32); CHLORIDE LEVEL 106 MEQ/L (98-107); CHOLESTEROL LEVEL 205 MG/DL (<200); CHOLESTEROL RISK RATIO 8.541 (<5); CREATININE FOR GFR 1.02 MG/DL (0.70-1.30); FREE T4 0.82 NG/DL (0.76-1.46); GLOMERULAR FILTRATION RATE > 60.0 (>56); GLUCOSE, FASTING 113 MG/DL (70-100); HDL CHOLESTEROL 24 MG/DL (>40); NON-HDL-C 181 MG/DL; POTASSIUM SERUM 4.1 MEQ/L (3.5-5.1); SODIUM LEVEL 141 MEQ/L (136-145); TOTAL PROTEIN 7.2 GM/DL (6.4-8.2); TRIGLYCERIDES LEVEL 481 MG/DL (<150)
== END ==
LOC: M LAB REF 11:19
PROVIDERS: ATTEND Nurse Practitioner Family
DX: Z00.01 Encounter for general adult medical examination with abnormal findings (principal)

== ENCOUNTER → 2019-02-27 | Outpatient (CLI) | payer OTHER ==
[~2019-02-27] MED LIST changes: +AMLO10TA5 PO; +BACL10TA2 PO; +GEMF600T5 PO; +LEVO25TA5 PO; +ROBA750T4 PO; +TRAZ-252 PO
--- NOTE | 2019-02-27 11:24 | PFTRPT ---
Height: 66.00 Inches Weight: 187.00 Lbs BSA: 1.94 Diagnosis: R06 DATE OF PROCEDURE: 02/27/2019 ORDERED BY: Janee Garduno Spirometry: Pre and post bronchodilator study of excellent technical quality. Only reasonable effort. Forced vital capacity reduced. FEV1 in proportion. Obstructive index is, therefore, normal. Flow Volume Loop: Expiratory limb of the flow volume loop suggests suboptimal effort. Only borderline bronchodilator response is identified. Lung Volumes: Total lung capacity normal. Residual volume suggests air trapping. Diffusing Capacity: Diffusing capacity, although reduced, is appropriate for alveolar volume. Hemoglobin: No hemoglobin available for correction. Airway Mechanics: Airway resistance mildly elevated with a concomitant decrease in airway conductance. IMPRESSION: Cannot rule out a degree of air trapping. Please correlate clinically. MTDD
== END ==
LOC: M CARPUL 10:43
PROVIDERS: ATTEND Nurse Practitioner Family
DX: R06.02 Shortness of breath (principal); Z87.891 Personal history of nicotine dependence

== ENCOUNTER 2019-03-16 21:12 | Emergency (ER) | payer MEDICAID, OTHER ==
[~2019-03-16] VITALS: Ht 165.1 cm; Wt 86.4 kg
[~2019-03-16 21:12] MED LIST changes: -AMLO10TA5 PO; -BACL10TA2 PO; -GEMF600T5 PO; -LEVO25TA5 PO; -ROBA750T4 PO; -TRAZ-252 PO
[2019-03-16] MEDS ORDERED: GEMF600T5 PO (21:27)
[2019-03-16] MEDS ORDERED: BACL10TA2 PO (21:27)
[2019-03-16] MEDS ORDERED: LEVO25TA5 PO (21:27)
[2019-03-16] MEDS ORDERED: TRAZ-252 PO (21:27)
[2019-03-16] MEDS ORDERED: AMLO10TA5 PO (21:27)
[2019-03-16] MEDS ORDERED: ACETAMINOPHEN 500 MG TAB PO ONE (22:00)
[2019-03-16] MEDS ORDERED: KETOROLAC 60 MG/2 ML VIAL (J1885) IM ONE (22:00)
--- NOTE | 2019-03-16 22:50 | REPVR ---
PROCEDURE INFORMATION: Exam: CT Lumbar Spine Without Contrast Exam date and time: 03/16/2019 10:08 PM Clinical history: 54 years old, male; Pain; Other: Severe vertebral tenderness TECHNIQUE: Imaging protocol: Computed tomography images of the lumbar spine without contrast. Radiation optimization: All CT scans at this facility use at least one of these dose optimization techniques: automated exposure control; mA and/or kV adjustment per patient size (includes targeted exams where dose is matched to clinical indication); or iterative reconstruction. COMPARISON: SPINE LUMBOSACRAL PARTIAL 01/02/2018 11:02 FINDINGS: Vertebrae: No acute fracture or subluxation. Discs/Spinal canal/Neural foramina: Minimal to mild degenerative spurring of the disc spaces without decrease in height. Minimal facet arthropathy throughout. No significant spinal or foraminal stenosis. Appendix: Partial visualization of a normal appendix. Soft tissues: Unremarkable. IMPRESSION: 1. Minimal mild degenerative spurring at the disc spaces and minimal facet arthropathy. 2. Otherwise negative CT lumbar spine. No significant spinal or foraminal stenosis. Electronically signed by: Levi Block On 03/16/2019 22:49:55 PM
[2019-03-16] MEDS ORDERED: ROBA750T4 PO (22:52)
[2019-03-16 22:56] VITALS: BP 128/72
[2019-03-16] MEDS ORDERED: METHOCARBAMOL 750 MG TAB PO STA (22:57)
== END 2019-03-16 22:57 | disposition home or self-care (01) ==
LOC: M ED 21:12
DX: M51.37 Other intervertebral disc degeneration, lumbosacral region (principal); I10 Essential (primary) hypertension; E11.9 Type 2 diabetes mellitus without complications; B19.20 Unspecified viral hepatitis C without hepatic coma; E03.9 Hypothyroidism, unspecified; F19.10 Other psychoactive substance abuse, uncomplicated; M54.9 Dorsalgia, unspecified; G89.29 Other chronic pain; Z87.891 Personal history of nicotine dependence
CPT/HCPCS: 72131; 96372; 99283; J1885

== ENCOUNTER → 2019-04-20 | Outpatient (REF) | payer OTHER, MEDICAID ==
[~2019-04-20] MED LIST changes: +AMLO10TA5 PO; +BACL10TA2 PO; +GEMF600T5 PO; +LEVO25TA5 PO; +ROBA750T4 PO; +TRAZ-252 PO
[2019-04-20 14:14] LABS: ALBUMIN 4.1 GM/DL (3.2-5.2); ALT/SGPT 37 U/L (12-78); BILIRUBIN,TOTAL 0.6 MG/DL (0.2-1.0); BLOOD UREA NITROGEN 13 MG/DL (7-18); CALCIUM LEVEL 9.7 MG/DL (8.5-10.1); CARBON DIOXIDE LEVEL 28 MEQ/L (21-32); CHLORIDE LEVEL 106 MEQ/L (98-107); CREATININE FOR GFR 1.18 MG/DL (0.70-1.30); GLOMERULAR FILTRATION RATE > 60.0 (>56); GLUCOSE, FASTING 112 MG/DL (70-100); POTASSIUM SERUM 3.9 MEQ/L (3.5-5.1); SODIUM LEVEL 141 MEQ/L (136-145); TOTAL PROTEIN 7.5 GM/DL (6.4-8.2)
== END ==
LOC: M LAB REF 12:42
PROVIDERS: ATTEND Nurse Practitioner Family
DX: R73.01 Impaired fasting glucose (principal); E03.9 Hypothyroidism, unspecified

== ENCOUNTER → 2019-05-16 | Outpatient (REF) | payer OTHER, MEDICAID ==
[2019-05-16 18:38] LABS: CHOLESTEROL RISK RATIO 6.833 (<5)
[2019-05-16 19:07] LABS: HEMOGLOBIN A1c 5.7 %
== END ==
LOC: M LAB REF 16:55
PROVIDERS: ATTEND Nurse Practitioner Family
DX: E78.1 Pure hyperglyceridemia (principal); R73.01 Impaired fasting glucose

== ENCOUNTER → 2019-09-28 | Outpatient (REF) | payer OTHER, MEDICAID ==
[2019-09-28 15:12] LABS: BASO # 0.1 10^3/uL (0.0-0.2); BASO % 0.6 % (0.0-1.0); EOS # 0.4 10^3/uL (0.0-0.5); EOS % 4.2 % (0.0-3.0); HEMATOCRIT 46.2 % (42.0-52.0); HEMOGLOBIN 16.1 g/dl (13.5-17.5); LYMPH # 3.2 10^3/uL (1.5-5.0); LYMPH % 35.5 % (24.0-44.0); MEAN CORPUSCULAR HEMOGLOBIN 31.3 pg (27.0-33.0); MEAN CORPUSCULAR HGB CONC 34.8 g/dl (32.0-36.5); MEAN CORPUSCULAR VOLUME 89.9 fl (80.0-96.0); MONO # 0.7 10^3/uL (0.0-0.8); MONO % 7.3 % (0.0-5.0); NEUTROPHILS # 4.6 10^3/uL (1.5-8.5); NEUTROPHILS % 51.6 % (36.0-66.0); PLATELET COUNT, AUTOMATED 271 10^3/uL (150-450); RED BLOOD COUNT 5.14 10^6/uL (4.30-6.10); WHITE BLOOD COUNT 8.9 10^3/uL (4.0-10.0)
[2019-09-28 15:17] LABS: APPEARANCE, URINE HAZY (CLEAR); BACTERIA, URINE AUTO NEGATIVE (NEGATIVE); BILIRUBIN, URINE AUTO NEGATIVE (NEGATIVE); BLOOD, URINE BLOOD NEGATIVE (NEGATIVE); COLOR, URINE AMBER (YELLOW); GLUCOSE, URINE (UA) AUTO NEGATIVE (NEGATIVE); KETONE, URINE AUTO TRACE mg/dL (NEGATIVE); LEUKOCYTE ESTERASE, URINE AUTO NEGATIVE (NEGATIVE); MUCUS, URINE SMALL (NEGATIVE); NITRITE, URINE AUTO NEGATIVE (NEGATIVE); PROTEIN, URINE AUTO NEGATIVE (NEGATIVE); RBC, URINE AUTO 2 /HPF (0-3); SPECIFIC GRAVITY URINE AUTO 1.023 (1.002-1.035); SQUAMOUS EPITHELIAL CELL UR AU 0 /HPF (0-6); UROBILINOGEN, URINE AUTO 0.2 mg/dL (0.0-2.0); WBC, URINE AUTO 1 /HPF (0-3)
[2019-09-28 15:27] LABS: ALBUMIN 4.3 GM/DL (3.2-5.2); ALT/SGPT 28 U/L (12-78); BILIRUBIN,TOTAL 0.3 MG/DL (0.2-1.0); BLOOD UREA NITROGEN 13 MG/DL (7-18); CALCIUM LEVEL 9.9 MG/DL (8.5-10.1); CARBON DIOXIDE LEVEL 27 MEQ/L (21-32); CHLORIDE LEVEL 105 MEQ/L (98-107); CHOLESTEROL LEVEL 201 MG/DL (<200); CREATININE FOR GFR 1.07 MG/DL (0.70-1.30); FREE T4 1.08 NG/DL (0.76-1.46); GLOMERULAR FILTRATION RATE > 60.0 (>56); GLUCOSE, FASTING 105 MG/DL (70-100); HDL CHOLESTEROL 30 MG/DL (>40); LDL CHOLESTEROL 143 MG/DL (<100); NON-HDL-C 171 MG/DL; POTASSIUM SERUM 4.5 MEQ/L (3.5-5.1); SODIUM LEVEL 138 MEQ/L (136-145); TOTAL PROTEIN 8.1 GM/DL (6.4-8.2); TRIGLYCERIDES LEVEL 142 MG/DL (<150)
[2019-09-28 15:31] LABS: TOTAL 25(OH) VITAMIN D 18.9 NG/ML (30.0-100.0)
[2019-09-28 15:42] LABS: HEMOGLOBIN A1c 5.6 %
== END ==
LOC: M LAB REF 14:25
PROVIDERS: ATTEND Nurse Practitioner Family
DX: E03.9 Hypothyroidism, unspecified (principal); R73.01 Impaired fasting glucose; E78.1 Pure hyperglyceridemia; F17.200 Nicotine dependence, unspecified, uncomplicated; I10 Essential (primary) hypertension; E66.3 Overweight

== ENCOUNTER → 2020-01-22 | Outpatient (REF) | payer OTHER, MEDICAID ==
[~2020-01-22] MED LIST changes: -AMLO10TA5 PO; +AMLO1TAB25 PO
[2020-02-21 14:18] LABS: BASO # 0.1 10^3/uL (0.0-0.2); BASO % 0.7 % (0.0-1.0); EOS # 0.4 10^3/uL (0.0-0.5); EOS % 4.8 % (0.0-3.0); HEMATOCRIT 41.8 % (42.0-52.0); HEMOGLOBIN 14.2 g/dl (13.5-17.5); LYMPH # 2.7 10^3/uL (1.5-5.0); LYMPH % 37.2 % (24.0-44.0); MEAN CORPUSCULAR HEMOGLOBIN 31.1 pg (27.0-33.0); MEAN CORPUSCULAR VOLUME 91.5 fl (80.0-96.0); MONO # 0.6 10^3/uL (0.0-0.8); NEUTROPHILS # 3.6 10^3/uL (1.5-8.5); NEUTROPHILS % 48.9 % (36.0-66.0); PLATELET COUNT, AUTOMATED 280 10^3/uL (150-450); RED BLOOD COUNT 4.57 10^6/uL (4.30-6.10); WHITE BLOOD COUNT 7.3 10^3/uL (4.0-10.0)
[2020-03-05 09:32] LABS: BLOOD UREA NITROGEN 10 MG/DL (7-18); CARBON DIOXIDE LEVEL 28 MEQ/L (21-32); CHLORIDE LEVEL 105 MEQ/L (98-107); CREATININE FOR GFR 0.99 MG/DL (0.70-1.30); GLOMERULAR FILTRATION RATE > 60.0 (>56); GLUCOSE, FASTING 107 MG/DL (70-100); POTASSIUM SERUM 3.5 MEQ/L (3.5-5.1); SODIUM LEVEL 138 MEQ/L (136-145)
[2020-03-05 09:33] LABS: ALBUMIN 4.1 GM/DL (3.2-5.2); ALT/SGPT 26 U/L (12-78); BILIRUBIN,TOTAL 0.2 MG/DL (0.2-1.0); CALCIUM LEVEL 9.2 MG/DL (8.5-10.1); CHOLESTEROL LEVEL 165 MG/DL (<200); CHOLESTEROL RISK RATIO 6.346 (<5); HDL CHOLESTEROL 26 MG/DL (>40); HEMOGLOBIN A1c 5.3 %; LDL CHOLESTEROL 112 MG/DL (<100); NON-HDL-C 139 MG/DL; TOTAL 25(OH) VITAMIN D 57.2 NG/ML (30.0-100.0); TOTAL PROTEIN 7.5 GM/DL (6.4-8.2); TRIGLYCERIDES LEVEL 133 MG/DL (<150)
== END ==
LOC: M LAB REF 08:08
PROVIDERS: ATTEND Nurse Practitioner Family
DX: E78.5 Hyperlipidemia, unspecified (principal); E55.9 Vitamin D deficiency, unspecified; R73.03 Prediabetes; K21.9 Gastro-esophageal reflux disease without esophagitis; E78.1 Pure hyperglyceridemia; F17.200 Nicotine dependence, unspecified, uncomplicated; I10 Essential (primary) hypertension; E66.3 Overweight; Z13.9 Encounter for screening, unspecified

== ENCOUNTER → 2020-03-15 | Outpatient (CLI) | payer OTHER | LOC: M LABSMTC 09:45 | PROVIDERS: ATTEND Orthopaedic Surgery | DX: Z01.812 Encounter for preprocedural laboratory examination (principal); Z20.828 Contact with and (suspected) exposure to other viral communicable diseases ==

== ENCOUNTER → 2020-04-27 | Outpatient (CLI) | payer MEDICARE, OTHER | LOC: M LABSMTC 11:27 | PROVIDERS: ATTEND Orthopaedic Surgery | DX: Z01.812 Encounter for preprocedural laboratory examination (principal); Z20.828 Contact with and (suspected) exposure to other viral communicable diseases ==

== ENCOUNTER → 2020-10-14 | Outpatient (CLI) | payer MEDICARE, OTHER ==
[~2020-10-14] MED LIST changes: +E-Z-GAS II EFFERVESCENT PACKET (SODIUM BICARB./CITRIC ACID/SIMETHICONE) As Ordered ONE; +E-Z-HD 98% w/w 340GM SUSP BTL As Ordered ONE; +E-Z-PAQUE 96% w/w SUSP 176GM BTL As Ordered ONE
--- NOTE | 2020-10-14 16:18 | REP ---
INDICATION: DYSPHAGIA. COMPARISON: None TECHNIQUE: This procedure was performed by Bibi Bonilla [facility], under the direct supervision of Dr. Flores. Images were reviewed with Dr. Flores prior to dictation. Liquid barium and gas producing crystals were given in the erect position, as well as liquid barium in the prone oblique position in order to perform a double contrast esophagram examination. FINDINGS: A single view PA chest x-ray is submitted as a cash management officer film. The superior mediastinal structures are midline. The heart size is within normal limits. The lungs are clear. The oral and pharyngeal stages of deglutition were unremarkable. Esophageal transport is prompt and efficient and there is no evidence of esophagitis, stricture, or mucosal ring. However mild tertiary contractions were visualized during the exam. There is evidence of a small hiatal hernia. There was no gastroesophageal reflux noted . IMPRESSION: 1. Small hiatal hernia. 2. Mild tertiary contractions visualized during the exam. 0.3 minutes of fluoroscopy time was utilized for this procedure. Some fluoroscopic images are performed with last image hold technology. These images require no additional radiation. <Electronically signed by Bibi Bonilla > 10/14/20 1606 <Electronically signed by Fausto Flores > 10/14/20 1617
== END ==
LOC: M RAD 08:45
PROVIDERS: ATTEND Family Medicine Addiction Medicine
DX: R13.10 Dysphagia, unspecified (principal)

== ENCOUNTER → 2021-01-08 | Outpatient (CLI) | payer OTHER, MEDICAID ==
[~2021-01-08] MED LIST changes: +ALLE180T33 PO; +ASPI81TA26 PO; +BUSP10TA PO; -DULO1CAP6; +DULO1CAP6 PO; -E-Z-GAS II EFFERVESCENT PACKET (SODIUM BICARB./CITRIC ACID/SIMETHICONE) As Ordered ONE; -E-Z-HD 98% w/w 340GM SUSP BTL As Ordered ONE; -E-Z-PAQUE 96% w/w SUSP 176GM BTL As Ordered ONE; +INCR1INH INH; +LOPI600T PO; +PANT20TA6 PO; +SUBO8MIS SL
== END ==
LOC: M LABSMTC 11:52
PROVIDERS: ATTEND Anesthesiology
DX: Z01.818 Encounter for other preprocedural examination (principal); Z11.52 Encounter for screening for COVID-19

== ENCOUNTER 2021-01-13 10:00 | Day surgery (SDC) | payer MEDICARE ==
[~2021-01-13] VITALS: Ht 167.6 cm; Wt 78.9 kg
[~2021-01-13 10:00] MED LIST changes: +NS 1,000 ML IV ONE
[2021-01-13] MEDS ORDERED: fentaNYL 100 MCG/2 ML INJECTION (J3010) As Ordered ONE (11:31)
[2021-01-13] MEDS ORDERED: propofoL 500 MG/50 ML VIAL As Ordered ONE (11:31)
[2021-01-13] MEDS ORDERED: LIDOCAINE 2% 100MG/5ML SDV (FOR ANES.) As Ordered ONE (11:31)
[2021-01-13] MEDS ORDERED: propofoL 200 MG/20 ML VIAL As Ordered ONE (11:43)
--- NOTE | 2021-01-13 11:55 | ROOR ---
Patient Name: Agus Chand Procedure Date: 01/13/2021 11:11 AM Date of : 1965 Age: 55 Room: [facility] Gender: Male Note Status: Finalized Procedure: Upper GI endoscopy Indications: Dyspepsia, Heartburn Providers: Jaime Ta MD Referring MD: Arsenio HOLLAND MD Requesting Provider: Medicines: Monitored Anesthesia Care Complications: No immediate complications. Procedure: Pre-Anesthesia Assessment: - Prior to the procedure, a History and Physical was performed, and patient medications and allergies were reviewed. The patient is competent. The risks and benefits of the procedure and the sedation options and risks were discussed with the patient. All questions were answered and informed consent was obtained. Patient identification and proposed procedure were verified by the physician, the nurse and the anesthesiologist in the procedure room. Mental Status Examination: normal. Airway Examination: normal oropharyngeal airway and neck mobility. Respiratory Examination: clear to auscultation. CV Examination: normal. Prophylactic Antibiotics: The patient does not require prophylactic antibiotics. Prior Anticoagulants: The patient has taken no previous anticoagulant or antiplatelet agents. ASA Grade Assessment: II - A patient with mild systemic disease. After reviewing the risks and benefits, the patient was deemed in satisfactory condition to undergo the procedure. The anesthesia plan was to use monitored anesthesia care (MAC). Immediately prior to administration of medications, the patient was re-assessed for adequacy to receive sedatives. The heart rate, respiratory rate, oxygen saturations, blood pressure, adequacy of pulmonary ventilation, and response to care were monitored throughout the procedure. The physical status of the patient was re-assessed after the procedure. The Endoscope was introduced through the mouth, and advanced to the second part of duodenum. The upper GI endoscopy was accomplished without difficulty. The patient tolerated the procedure well. Findings: The Z-line was regular and was found 41 cm from the incisors. Scattered moderate inflammation characterized by erythema, granularity and linear erosions was found in the gastric antrum. Biopsies were taken with a cold forceps for histology. Verification of patient identification for the specimen was done by the physician and nurse using the patient's name, date and medical record number. Estimated blood loss was minimal. The duodenal bulb and second portion of the duodenum were normal. Impression: - Z-line regular, 41 cm from the incisors. - Gastritis. Biopsied. - Normal duodenal bulb and second portion of the duodenum. Recommendation: - Patient has a contact number available for emergencies. The signs and symptoms of potential delayed complications were discussed with the patient. Return to normal activities tomorrow. Written discharge instructions were provided to the patient. - High fiber diet. - Continue present medications. - Await pathology results. - Follow an antireflux regimen. - Telephone GI clinic for pathology results in 2 weeks. - Return to primary care physician. - Return to GI clinic if persistent symptoms or new symptoms. Procedure Code(s): --- Professional --- 94828, Esophagogastroduodenoscopy, flexible, transoral; with biopsy, single or multiple Diagnosis Code(s): --- Professional --- K29.70, Gastritis, unspecified, without bleeding R10.13, Epigastric pain R12, Heartburn CPT copyright 2019 [employer]. All rights reserved. The codes documented in this report are preliminary and upon surveying crew rodman review may be revised to meet current compliance requirements. Jaime Ta MD Jaime Ta MD 01/13/2021 11:54:39 AM Electronically signed by Jaime Ta MD Number of Addenda: 0 Note Initiated On: 01/13/2021 11:11 AM Estimated Blood Loss: Estimated blood loss was minimal.
--- NOTE | 2021-01-13 12:08 | ROOR ---
Patient Name: Agus Chand Procedure Date: 01/13/2021 11:12 AM Date of : 1965 Age: 55 Room: [facility] Gender: Male Note Status: Finalized Procedure: Colonoscopy Indications: Change in bowel habits Providers: Jaime Ta MD Referring MD: Arsenio HOLLAND MD Requesting Provider: Medicines: Monitored Anesthesia Care Complications: No immediate complications. Procedure: Pre-Anesthesia Assessment: - Prior to the procedure, a History and Physical was performed, and patient medications and allergies were reviewed. The patient is competent. The risks and benefits of the procedure and the sedation options and risks were discussed with the patient. All questions were answered and informed consent was obtained. Patient identification and proposed procedure were verified by the physician, the nurse and the anesthesiologist in the pre-procedure area. Mental Status Examination: alert and oriented. Airway Examination: normal oropharyngeal airway and neck mobility. Respiratory Examination: clear to auscultation. CV Examination: normal. Prophylactic Antibiotics: The patient does not require prophylactic antibiotics. Prior Anticoagulants: The patient has taken no previous anticoagulant or antiplatelet agents. ASA Grade Assessment: II - A patient with mild systemic disease. After reviewing the risks and benefits, the patient was deemed in satisfactory condition to undergo the procedure. The anesthesia plan was to use monitored anesthesia care (MAC). Immediately prior to administration of medications, the patient was re-assessed for adequacy to receive sedatives. The heart rate, respiratory rate, oxygen saturations, blood pressure, adequacy of pulmonary ventilation, and response to care were monitored throughout the procedure. The physical status of the patient was re-assessed after the procedure. The Colonoscope was introduced through the anus and advanced to the terminal ileum, with identification of the appendiceal orifice and IC valve. The colonoscopy was performed without difficulty. The patient tolerated the procedure well. The quality of the bowel preparation was fair except the ascending colon was poor and the cecum was poor. The terminal ileum, ileocecal valve, appendiceal orifice, and rectum were photographed. Scope insertion time was 2 minutes. Scope withdrawal time was 9 minutes. The total duration of the procedure was 11 minutes. Findings: The perianal and digital rectal examinations were normal. The terminal ileum appeared normal. Scattered mild inflammation characterized by altered vascularity, congestion (edema), erosions and friability was found in the distal transverse colon and in the ascending colon. Biopsies were taken with a cold forceps for histology. Verification of patient identification for the specimen was done by the physician and nurse using the patient's name, date and medical record number. Estimated blood loss was minimal. Non-bleeding external and internal hemorrhoids were found during retroflexion. The hemorrhoids were medium-sized. Impression: - The examined portion of the ileum was normal. - Scattered mild inflammation was found in the distal transverse colon and in the ascending colon secondary to colitis. Biopsied. - Non-bleeding external and internal hemorrhoids. Recommendation: - Patient has a contact number available for emergencies. The signs and symptoms of potential delayed complications were discussed with the patient. Return to normal activities tomorrow. Written discharge instructions were provided to the patient. - High fiber diet. - Continue present medications. - Await pathology results. - Repeat colonoscopy in 1 year for screening purposes. - Telephone GI clinic for pathology results in 2 weeks. - Return to GI clinic if persistent symptoms or new symptoms. - Return to primary care physician. Procedure Code(s): --- Professional --- 69146, Colonoscopy, flexible; with biopsy, single or multiple Diagnosis Code(s): --- Professional --- K64.8, Other hemorrhoids K52.9, Noninfective gastroenteritis and colitis, unspecified R19.4, Change in bowel habit CPT copyright 2019 [employer]. All rights reserved. The codes documented in this report are preliminary and upon checkroom chief review may be revised to meet current compliance requirements. Jaime Ta MD Jaime Ta MD 01/13/2021 12:08:15 PM Electronically signed by Jaime Ta MD Number of Addenda: 0 Note Initiated On: 01/13/2021 11:12 AM Estimated Blood Loss: Estimated blood loss was minimal.
[2021-01-13 12:17] VITALS: BP 111/55
== END 2021-01-13 12:20 | disposition home or self-care (01) ==
LOC: M OPP 10:00
PROVIDERS: ATTEND Internal Medicine Gastroenterology
DX: K22.9 Disease of esophagus, unspecified (principal); K64.8 Other hemorrhoids; R19.4 Change in bowel habit; K29.70 Gastritis, unspecified, without bleeding; R12 Heartburn; R13.10 Dysphagia, unspecified; Z79.82 Long term (current) use of aspirin; Z79.899 Other long term (current) drug therapy; F17.210 Nicotine dependence, cigarettes, uncomplicated; J44.9 Chronic obstructive pulmonary disease, unspecified
CPT/HCPCS: 43239; 45380; 88305; J3010

== ENCOUNTER → 2021-12-31 | Outpatient (CLI) | payer MEDICARE, MEDICAID ==
[~2021-12-31] MED LIST changes: -NS 1,000 ML IV ONE
== END ==
LOC: M SOG 15:28
PROVIDERS: ATTEND Orthopaedic Surgery
DX: Z47.89 Encounter for other orthopedic aftercare (principal)

== ENCOUNTER → 2022-03-10 | Outpatient (CLI) | payer MEDICARE, MEDICAID | LOC: M SOG 08:45 | PROVIDERS: ATTEND Orthopaedic Surgery | DX: M25.562 Pain in left knee (principal); M25.561 Pain in right knee ==

== ENCOUNTER → 2022-06-24 | Outpatient (CLI) | payer MEDICARE, MEDICAID | LOC: M RAD 12:36 | PROVIDERS: ATTEND Physician Assistant | DX: M47.816 Spondylosis without myelopathy or radiculopathy, lumbar region (principal); M54.50 Low back pain, unspecified ==

== ENCOUNTER → 2022-08-31 | Outpatient (CLI) | payer MEDICARE, MEDICAID ==
[~2022-08-31] MED LIST changes: +TRAZ-257 PO
== END ==
LOC: M LABSMTC 10:05
PROVIDERS: ATTEND Anesthesiology
DX: Z01.818 Encounter for other preprocedural examination (principal); Z11.52 Encounter for screening for COVID-19

== ENCOUNTER → 2022-09-01 | Outpatient (REF) | payer MEDICARE, MEDICAID ==
[2022-09-01 14:21] LABS: ALKALINE PHOSPHATASE 79 U/L (46-116); ALT/SGPT 40 U/L (7.0-40); AST/SGOT 42 U/L (<34); BILIRUBIN,TOTAL 0.3 MG/DL (0.3-1.2); BLOOD UREA NITROGEN 13 MG/DL (9-23); CALCIUM LEVEL 9.7 MG/DL (8.5-10.1); CARBON DIOXIDE LEVEL 29 MMOL/L (20-31); CHLORIDE LEVEL 107 MMOL/L (98-107); CHOLESTEROL LEVEL 171 MG/DL (<200); CHOLESTEROL RISK RATIO 7.56 (<5); CREATININE FOR GFR 1.05 MG/DL (0.70-1.30); GLOMERULAR FILTRATION RATE > 60.0 (>56); GLUCOSE, FASTING 102 MG/DL (60-100); HDL CHOLESTEROL 22.6 MG/DL (>40); NON-HDL-C 148.4 MG/DL; POTASSIUM SERUM 4.3 MMOL/L (3.5-5.1); SODIUM LEVEL 139 MMOL/L (136-145); THYROID STIMULATING HORMONE 3.006 uIU/ML (0.55-4.78); TOTAL PROTEIN 7.3 G/DL (5.7-8.2); TRIGLYCERIDES LEVEL 367 MG/DL (<150)
== END ==
LOC: M LAB REF 12:50
PROVIDERS: ATTEND Family Medicine Addiction Medicine
DX: E78.1 Pure hyperglyceridemia (principal)

== ENCOUNTER 2022-09-03 08:00 | Day surgery (SDC) | payer MEDICARE, MEDICAID ==
[~2022-09-03] VITALS: Ht 167.6 cm; Wt 84.7 kg
[~2022-09-03 08:00] MED LIST changes: +ACETAMINOPHEN *IV* 1,000 MG IV ONE; +NS 1,000 ML IV ONE
[2022-09-03] MEDS ORDERED: propofoL 200 MG/20 ML VIAL As Ordered ONE (09:24)
[2022-09-03] MEDS ORDERED: LIDOCAINE 2% 100MG/5ML SDV (FOR ANES.) As Ordered ONE (09:24)
[2022-09-03 10:22] VITALS: BP 135/66
== END 2022-09-03 10:40 | disposition home or self-care (01) ==
LOC: M OPP 08:00
PROVIDERS: ATTEND Internal Medicine Gastroenterology
DX: Z12.11 Encounter for screening for malignant neoplasm of colon (principal); K64.8 Other hemorrhoids; K64.4 Residual hemorrhoidal skin tags; G47.33 Obstructive sleep apnea (adult) (pediatric); I10 Essential (primary) hypertension; E78.5 Hyperlipidemia, unspecified; E03.9 Hypothyroidism, unspecified; I67.1 Cerebral aneurysm, nonruptured; J44.9 Chronic obstructive pulmonary disease, unspecified; F17.200 Nicotine dependence, unspecified, uncomplicated; Z79.82 Long term (current) use of aspirin; Z79.890 Hormone replacement therapy; Z79.891 Long term (current) use of opiate analgesic; Z79.899 Other long term (current) drug therapy

== ENCOUNTER → 2022-12-01 | Outpatient (REF) | payer MEDICARE, MEDICAID ==
[~2022-12-01] MED LIST changes: -ACETAMINOPHEN *IV* 1,000 MG IV ONE; -NS 1,000 ML IV ONE
[2022-12-01 18:57] LABS: ALBUMIN 3.9 G/DL (3.2-5.2); ALKALINE PHOSPHATASE 82 U/L (46-116); ALT/SGPT 34 U/L (7.0-40); AST/SGOT 26 U/L (<34); BILIRUBIN,TOTAL 0.3 MG/DL (0.3-1.2); BLOOD UREA NITROGEN 13 MG/DL (9-23); CALCIUM LEVEL 8.9 MG/DL (8.5-10.1); CARBON DIOXIDE LEVEL 26 MMOL/L (20-31); CHLORIDE LEVEL 105 MMOL/L (98-107); CHOLESTEROL LEVEL 83 MG/DL (<200); CHOLESTEROL RISK RATIO 4.27 (<5); CREATININE FOR GFR 1.09 MG/DL (0.70-1.30); GLOMERULAR FILTRATION RATE > 60.0 (>56); GLUCOSE, FASTING 125 MG/DL (60-100); HDL CHOLESTEROL 19.4 MG/DL (>40); LDL CHOLESTEROL 40.6 MG/DL (<100); NON-HDL-C 63.6 MG/DL; POTASSIUM SERUM 4.2 MMOL/L (3.5-5.1); SODIUM LEVEL 138 MMOL/L (136-145); TOTAL PROTEIN 6.7 G/DL (5.7-8.2); TRIGLYCERIDES LEVEL 115 MG/DL (<150)
[2022-12-01 19:03] LABS: THYROID STIMULATING HORMONE 2.497 uIU/ML (0.55-4.78)
== END ==
LOC: M LAB REF 17:32
PROVIDERS: ATTEND Family Medicine Addiction Medicine
DX: E78.1 Pure hyperglyceridemia (principal)

== ENCOUNTER → 2023-08-26 | Outpatient (REF) | payer MEDICARE, MEDICAID ==
[2023-08-26 17:48] LABS: ALBUMIN 4.4 G/DL (3.2-5.2); ALKALINE PHOSPHATASE 76 U/L (46-116); ALT/SGPT 80 U/L (7.0-40); AST/SGOT 49 U/L (<34); BILIRUBIN,TOTAL 0.4 MG/DL (0.3-1.2); BLOOD UREA NITROGEN 15 MG/DL (9-23); CALCIUM LEVEL 9.4 MG/DL (8.5-10.1); CARBON DIOXIDE LEVEL 30 MMOL/L (20-31); CHLORIDE LEVEL 105 MMOL/L (98-107); CPK CREATINE PHOSPHOKINASE 309 U/L (46-171); GLOMERULAR FILTRATION RATE > 60.0 (>56); GLUCOSE, FASTING 111 MG/DL (60-100); MAGNESIUM LEVEL 2.2 MG/DL (1.8-2.4); POTASSIUM SERUM 4.5 MMOL/L (3.5-5.1); SODIUM LEVEL 142 MMOL/L (136-145); TOTAL PROTEIN 7.5 G/DL (5.7-8.2)
[2023-08-26 17:52] LABS: FREE T4 1.06 NG/DL (0.89-1.76)
[2023-08-26 17:53] LABS: THYROID STIMULATING HORMONE 2.286 uIU/ML (0.55-4.78)
[2023-08-26 17:54] LABS: TESTOSTERONE 186 NG/DL (241-827)
[2023-08-26 17:59] LABS: BASO # 0.1 10^3/uL (0.0-0.2); BASO % 0.5 % (0.0-1.0); EOS # 0.3 10^3/uL (0.0-0.5); EOS % 2.9 % (0.0-3.0); HEMATOCRIT 41.8 % (42.0-52.0); HEMOGLOBIN 14.2 g/dl (13.5-17.5); LYMPH # 3.8 10^3/uL (1.5-5.0); LYMPH % 39.9 % (24.0-44.0); MEAN CORPUSCULAR HEMOGLOBIN 30.5 pg (27.0-33.0); MEAN CORPUSCULAR VOLUME 89.9 fl (80.0-96.0); MONO # 0.6 10^3/uL (0.0-0.8); MONO % 6.5 % (2.0-8.0); NEUTROPHILS # 4.7 10^3/uL (1.5-8.5); NEUTROPHILS % 49.9 % (36.0-66.0); PLATELET COUNT, AUTOMATED 256 10^3/uL (150-450); RED BLOOD COUNT 4.65 10^6/uL (4.30-6.10); WHITE BLOOD COUNT 9.4 10^3/uL (4.0-10.0)
== END ==
LOC: M LAB REF 16:26
PROVIDERS: ATTEND Family Medicine Addiction Medicine
DX: R25.2 Cramp and spasm (principal); R68.82 Decreased libido; R53.83 Other fatigue; R94.5 Abnormal results of liver function studies

== ENCOUNTER → 2023-09-02 | Outpatient (REF) | payer MEDICARE, MEDICAID ==
[2023-09-02 13:46] LABS: CPK CREATINE PHOSPHOKINASE 174 U/L (46-171)
[2023-09-02 13:49] LABS: TESTOSTERONE 255 NG/DL (241-827)
== END ==
LOC: M LAB REF 12:43
PROVIDERS: ATTEND Family Medicine Addiction Medicine
DX: R89.1 Abnormal level of hormones in specimens from other organs, systems and tissues (principal); R53.83 Other fatigue; R97.20 Elevated prostate specific antigen [PSA]

== ENCOUNTER → 2023-09-09 | Outpatient (CLI) | payer MEDICARE, MEDICAID | LOC: M RAD 07:38 | PROVIDERS: ATTEND Family Medicine Addiction Medicine | DX: R74.01 Elevation of levels of liver transaminase levels (principal) ==

== ENCOUNTER → 2023-10-05 | Outpatient (CLI) | payer MEDICARE ==
[~2023-10-05] MED LIST changes: +ALBU8.5H INH; +ATOM100C6 PO; +ATOR80TA59 PO; +BUPR1FIL SL; +CLOP75TA2 PO; +EMMA PO; +LISI20TA33 PO; +OMEP40CA5 PO; +VENL150C43 PO; +VENL75CA47 PO
== END ==
LOC: M PLAIMG 10:35
PROVIDERS: ATTEND Physician Assistant
DX: R43.8 Other disturbances of smell and taste (principal)

== ENCOUNTER 2023-10-12 12:35 | Day surgery (SDC) | payer MEDICARE, MEDICAID ==
[~2023-10-12] VITALS: Ht 167.6 cm; Wt 85.6 kg
[2023-10-12] MEDS: NS 1,000 ML IV ONE (12:49)
[2023-10-12] MEDS ORDERED: LIDOCAINE 2% 100MG/5ML SDV (FOR ANES.) As Ordered ONE (13:46)
[2023-10-12] MEDS ORDERED: propofoL 200 MG/20 ML VIAL As Ordered ONE (13:46)
[2023-10-12 14:04] VITALS: TEMP 98.7
[2023-10-12 14:35] VITALS: BP 144/81; O2SAT 99
== END 2023-10-12 14:43 | disposition home or self-care (01) ==
LOC: M OPP 12:35
PROVIDERS: ATTEND Internal Medicine Gastroenterology
DX: R13.10 Dysphagia, unspecified (principal); K29.51 Unspecified chronic gastritis with bleeding; R11.2 Nausea with vomiting, unspecified; K21.9 Gastro-esophageal reflux disease without esophagitis; I10 Essential (primary) hypertension; E03.9 Hypothyroidism, unspecified; J44.9 Chronic obstructive pulmonary disease, unspecified; G47.30 Sleep apnea, unspecified; R73.03 Prediabetes; Z79.82 Long term (current) use of aspirin; Z79.899 Other long term (current) drug therapy; Z86.73 Personal history of transient ischemic attack (TIA), and cerebral infarction without residual deficits; I67.1 Cerebral aneurysm, nonruptured; F17.210 Nicotine dependence, cigarettes, uncomplicated; Z79.890 Hormone replacement therapy

== ENCOUNTER → 2023-10-21 | Outpatient (REF) | payer MEDICARE, MEDICAID | LOC: M LAB REF 12:21 | PROVIDERS: ATTEND Nurse Practitioner Family | DX: R19.7 Diarrhea, unspecified (principal) ==

== ENCOUNTER → 2024-02-15 | Outpatient (REF) | payer MEDICARE, MEDICAID ==
[2024-02-15 17:33] LABS: FREE T4 1.16 NG/DL (0.89-1.76); THYROID STIMULATING HORMONE 3.273 uIU/ML (0.55-4.78)
[2024-02-15 17:42] LABS: HEMOGLOBIN A1c 5.3 % (4.0-6.0)
[2024-02-15 17:47] LABS: BASO # 0.1 10^3/uL (0.0-0.2); BASO % 0.7 % (0.0-1.0); EOS # 0.2 10^3/uL (0.0-0.5); EOS % 2.4 % (0.0-3.0); HEMATOCRIT 46.2 % (42.0-52.0); HEMOGLOBIN 15.4 g/dl (13.5-17.5); LYMPH # 3.4 10^3/uL (1.5-5.0); MEAN CORPUSCULAR HEMOGLOBIN 30.5 pg (27.0-33.0); MEAN CORPUSCULAR HGB CONC 33.3 g/dl (32.0-36.5); MEAN CORPUSCULAR VOLUME 91.5 fl (80.0-96.0); MONO # 0.6 10^3/uL (0.0-0.8); NEUTROPHILS # 5.3 10^3/uL (1.5-8.5); NEUTROPHILS % 55.5 % (36.0-66.0); PLATELET COUNT, AUTOMATED 218 10^3/uL (150-450); RED BLOOD COUNT 5.05 10^6/uL (4.30-6.10); WHITE BLOOD COUNT 9.6 10^3/uL (4.0-10.0)
== END ==
LOC: M LAB REF 16:42
PROVIDERS: ATTEND Family Medicine Addiction Medicine
DX: R53.83 Other fatigue (principal)

== ENCOUNTER → 2024-02-25 | Outpatient (REF) | payer MEDICARE, MEDICAID | LOC: M LAB REF 12:49 | PROVIDERS: ATTEND Family Medicine Addiction Medicine | DX: R89.1 Abnormal level of hormones in specimens from other organs, systems and tissues (principal) ==

== ENCOUNTER → 2024-03-06 | Outpatient (REF) | payer MEDICARE, MEDICAID ==
[2024-03-06 17:34] LABS: APPEARANCE, URINE CLEAR (CLEAR); BACTERIA, URINE AUTO NEGATIVE (NEGATIVE); BILIRUBIN, URINE AUTO NEGATIVE (NEGATIVE); BLOOD, URINE BLOOD 1+ (NEGATIVE); COLOR, URINE YELLOW (YELLOW); GLUCOSE, URINE (UA) AUTO NEGATIVE (NEGATIVE); KETONE, URINE AUTO TRACE mg/dL (NEGATIVE); LEUKOCYTE ESTERASE, URINE AUTO NEGATIVE (NEGATIVE); MUCUS, URINE SMALL (NEGATIVE); NITRITE, URINE AUTO NEGATIVE (NEGATIVE); PROTEIN, URINE AUTO NEGATIVE (NEGATIVE); RBC, URINE AUTO 8 /HPF (0-3); SPECIFIC GRAVITY URINE AUTO 1.021 (1.002-1.035); SQUAMOUS EPITHELIAL CELL UR AU 0 /HPF (0-6); UROBILINOGEN, URINE AUTO 0.2 mg/dL (0.0-2.0); WBC, URINE AUTO 2 /HPF (0-3)
== END ==
LOC: M LAB REF 16:25
PROVIDERS: ATTEND Physician Assistant Medical
DX: N39.0 Urinary tract infection, site not specified (principal)

== ENCOUNTER → 2024-03-24 | Outpatient (CLI) | payer MEDICARE, MEDICAID ==
[2024-03-24 14:29] LABS: BASO # 0.1 10^3/uL (0.0-0.2); BASO % 0.5 % (0.0-1.0); EOS # 0.2 10^3/uL (0.0-0.5); EOS % 1.3 % (0.0-3.0); HEMATOCRIT 43.4 % (42.0-52.0); HEMOGLOBIN 14.6 g/dl (13.5-17.5); LYMPH # 4.1 10^3/uL (1.5-5.0); LYMPH % 31.6 % (24.0-44.0); MEAN CORPUSCULAR HEMOGLOBIN 30.5 pg (27.0-33.0); MEAN CORPUSCULAR HGB CONC 33.6 g/dl (32.0-36.5); MEAN CORPUSCULAR VOLUME 90.6 fl (80.0-96.0); MONO # 0.7 10^3/uL (0.0-0.8); MONO % 5.5 % (2.0-8.0); NEUTROPHILS # 7.9 10^3/uL (1.5-8.5); NEUTROPHILS % 60.7 % (36.0-66.0); PLATELET COUNT, AUTOMATED 235 10^3/uL (150-450); RED BLOOD COUNT 4.79 10^6/uL (4.30-6.10); WHITE BLOOD COUNT 13.1 10^3/uL (4.0-10.0)
[2024-03-24 14:42] LABS: INR 1.08; PARTIAL THROMBOPLASTIN TIME 26.8 SECONDS (24.8-34.2); PROTHROMBIN TIME 13.7 SECONDS (12.5-14.5)
[2024-03-24 14:58] LABS: BLOOD UREA NITROGEN 14 MG/DL (9-23); CARBON DIOXIDE LEVEL 31 MMOL/L (20-31); CHLORIDE LEVEL 108 MMOL/L (98-107); CREATININE FOR GFR 1.08 MG/DL (0.70-1.30); GLOMERULAR FILTRATION RATE > 60.0 (>56); GLUCOSE, FASTING 91 MG/DL (60-100); POTASSIUM SERUM 4.5 MMOL/L (3.5-5.1); SODIUM LEVEL 139 MMOL/L (136-145)
== END ==
LOC: M LAB 13:47
PROVIDERS: ATTEND Internal Medicine
DX: Z01.812 Encounter for preprocedural laboratory examination (principal); Z79.01 Long term (current) use of anticoagulants

== ENCOUNTER → 2024-04-07 | Outpatient (CLI) | payer MEDICARE, MEDICAID ==
[~2024-04-07] MED LIST changes: +GASTROGRAFIN SOLUTION 30ML As Ordered ONE; +ISOVUE-370 76% 100ML VIAL As Ordered ONE
== END ==
LOC: M RAD 08:17
PROVIDERS: ATTEND Physician Assistant
DX: R10.9 Unspecified abdominal pain (principal); J47.9 Bronchiectasis, uncomplicated; N28.1 Cyst of kidney, acquired; K57.30 Diverticulosis of large intestine without perforation or abscess without bleeding
CPT/HCPCS: 74177; Q9963; Q9967

== ENCOUNTER → 2024-04-19 | Outpatient (CLI) | payer MEDICARE, MEDICAID ==
[~2024-04-19] MED LIST changes: -GASTROGRAFIN SOLUTION 30ML As Ordered ONE; -ISOVUE-370 76% 100ML VIAL As Ordered ONE
== END ==
LOC: M RAD 07:36
PROVIDERS: ATTEND Family Medicine Addiction Medicine
DX: R10.9 Unspecified abdominal pain (principal)
CPT/HCPCS: 78264; A9541

== ENCOUNTER → 2024-06-08 | Outpatient (REF) | payer MEDICARE, MEDICAID ==
[2024-06-08 17:29] LABS: BACTERIA, URINE AUTO NEGATIVE (NEGATIVE); CALCIUM OXALATE CRYSTALS SMALL; MUCUS, URINE SMALL (NEGATIVE); RBC, URINE AUTO 8 /HPF (0-3); SQUAMOUS EPITHELIAL CELL UR AU 1 /HPF (0-6); WBC, URINE AUTO 0 /HPF (0-3)
== END ==
LOC: M LAB REF 16:05
PROVIDERS: ATTEND Physician Assistant
DX: E29.1 Testicular hypofunction (principal)

== ENCOUNTER → 2024-10-17 | Outpatient (CLI) | payer MEDICARE, MEDICAID | LOC: M RAD 07:09 | PROVIDERS: ATTEND Family Medicine Addiction Medicine | DX: R10.9 Unspecified abdominal pain (principal) ==

== ENCOUNTER → 2025-03-06 | Outpatient (REF) | payer MEDICARE, MEDICAID ==
[~2025-03-06] MED LIST changes: -IBUP-1022; +IBUP600T42
[2025-03-06 18:51] LABS: BASO # 0.1 10^3/uL (0.0-0.2); BASO % 0.5 % (0.0-1.0); EOS # 0.4 10^3/uL (0.0-0.5); EOS % 3.8 % (0.0-3.0); LYMPH # 4.0 10^3/uL (1.5-5.0); LYMPH % 42.4 % (24.0-44.0); MONO # 0.6 10^3/uL (0.0-0.8); MONO % 6.2 % (2.0-8.0); NEUTROPHILS # 4.4 10^3/uL (1.5-8.5); NEUTROPHILS % 46.9 % (36.0-66.0); PLATELET COUNT, AUTOMATED 199 10^3/uL (150-450)
== END ==
LOC: M LAB REF 17:09
PROVIDERS: ATTEND Family Medicine Addiction Medicine
DX: R79.89 Other specified abnormal findings of blood chemistry (principal)

== ENCOUNTER → 2025-03-14 | Outpatient (CLI) | payer MEDICARE, MEDICAID ==
[2025-03-14 15:26] LABS: C REACTIVE PROTEIN QUANTITATIV 1.08 MG/DL (<1.0); RHEUMATOID FACTOR QUANT < 3.5 IU/ML (<14)
[2025-03-15 11:06] LABS: DRVV SCREEN 39.3 SECONDS
[2025-03-15 11:07] LABS: PTT LUPUS TYPE ANTICOAG SCREEN 1.03 (0-1.20)
== END ==
LOC: M PLALAB 10:58
PROVIDERS: ATTEND Psychiatry & Neurology Neurology
DX: I77.6 Arteritis, unspecified (principal); Z79.01 Long term (current) use of anticoagulants

== ENCOUNTER → 2025-03-20 | Outpatient (REF) | payer MEDICARE, MEDICAID ==
[2025-03-21 23:32] LABS: CARDIOLIPIN IGA ANTIBODY < 2.0 APL-U/mL (<20.0); CARDIOLIPIN IGG ANTIBODY < 2.0 GPL-U/mL (<20.0); CARDIOLIPIN IGM ANTIBODY < 2.0 MPL-U/mL (<20.0)
[2025-03-22 13:37] LABS: ANTI SMITH(Sm) AB <1.0 NEG AI (<1.0 NEG); ANTI-U1 RNP AB <1.0 NEG AI (<1.0 NEG); SSA SJOGRENS A <1.0 NEG AI (<1.0 NEG); SSB SJOGRENS B <1.0 NEG AI (<1.0 NEG)
== END ==
LOC: M LAB REF 11:59
PROVIDERS: ATTEND Psychiatry & Neurology Neurology
DX: L95.9 Vasculitis limited to the skin, unspecified (principal)

== ENCOUNTER → 2025-05-08 | Outpatient (REF) | payer MEDICARE, MEDICAID ==
[2025-05-08 16:53] LABS: ALT/SGPT 24 U/L (7.0-40); AST/SGOT 24 U/L (<34); C REACTIVE PROTEIN QUANTITATIV < 0.50 MG/DL (<1.0); CALCIUM LEVEL 9.1 MG/DL (8.3-10.6); CARBON DIOXIDE LEVEL 29 MMOL/L (20-31); CHLORIDE LEVEL 109 MMOL/L (98-107); CREATININE FOR GFR 1.10 MG/DL (0.70-1.30); GLOMERULAR FILTRATION RATE 76.9 (>49); POTASSIUM SERUM 4.6 MMOL/L (3.5-5.1); SODIUM LEVEL 143 MMOL/L (136-145)
[2025-05-08 16:55] LABS: RHEUMATOID FACTOR QUANT < 3.5 IU/ML (<14)
[2025-05-08 16:57] LABS: BASO # 0.1 10^3/uL (0.0-0.2); BASO % 0.6 % (0.0-1.0); EOS # 0.4 10^3/uL (0.0-0.5); EOS % 3.9 % (0.0-3.0); LYMPH # 3.9 10^3/uL (1.5-5.0); LYMPH % 38.3 % (24.0-44.0); MONO # 0.7 10^3/uL (0.0-0.8); MONO % 6.5 % (2.0-8.0); NEUTROPHILS # 5.1 10^3/uL (1.5-8.5); NEUTROPHILS % 50.1 % (36.0-66.0); PLATELET COUNT, AUTOMATED 223 10^3/uL (150-450)
[2025-05-11 21:47] LABS: SSA SJOGRENS A <1.0 NEG AI (<1.0 NEG); SSB SJOGRENS B <1.0 NEG AI (<1.0 NEG)
[2025-05-15 16:02] LABS: HLA-B27 Negative (Negative)
== END ==
LOC: M LAB REF 16:17
PROVIDERS: ATTEND Family Medicine Addiction Medicine
DX: L93.0 Discoid lupus erythematosus (principal)